=== PATIENT | female | born 1975 ===

== ENCOUNTER 2018-02-05 23:41 | Emergency (ER) | payer SELFPAY ==
[2018-02-05 23:56] VITALS: BP 123/73; PULSE 73; RESP 18; TEMP 98.3; O2SAT 98
[2018-02-06] MEDS ORDERED: Tmp-Smz 800 mg-160 mg DS Tab PO STA (00:35)
--- NOTE | 2018-02-06 00:48 | C.PDOC ---
History Of Present Illness 42 y/o female presents to ED for complaints of developing an itchy, painful and swollen rash on left upper arm that began 2 days ago after she was bit by a bug. Denies SOB, fever, chills, or any other physical complaints. Time Seen by Provider: 02/06/18 00:01 Chief Complaint (Nursing): Abnormal Skin Integrity History Per: Patient History/Exam Limitations: no limitations Onset/Duration Of Symptoms: Hrs Current Symptoms Are (Timing): Still Present Location Of Injury: Left: Arm Quality Of Symptoms: Painful, Itching, Swollen. denies: Draining Recent travel outside of the [place]: No Past Medical History Reviewed: Historical Data, Nursing Documentation, Vital Signs Vital Signs: Last Vital Signs Temp 98.3 F 02/05/18 23:53 Pulse 73 02/05/18 23:53 Resp 18 02/05/18 23:53 BP 123/73 02/05/18 23:53 Pulse Ox 98 02/06/18 01:01 - Medical History PMH: No Chronic Diseases Surgical History: No Surg Hx Family History: States: Unknown Family Hx - Social History Hx Alcohol Use: No Hx Substance Use: No - Immunization History Hx Tetanus Toxoid Vaccination: No Hx Influenza Vaccination: No Hx Pneumococcal Vaccination: No Review Of Systems Constitutional: Negative for: Fever, Chills Gastrointestinal: Negative for: Nausea, Vomiting, Abdominal Pain, Diarrhea Skin: Positive for: Rash (Left upper arm ) Neurological: Negative for: Weakness, Numbness Physical Exam - Physical Exam Appears: Well, Non-toxic, No Acute Distress Skin: Normal Color, Warm, Dry, Rash (5-6cm left upper arm area; erythema; swelling; mild tenderness to posterior left upper arm from insect bite) Head: Atraumatic, Normacephalic Eye(s): bilateral: Normal Inspection, PERRL, EOMI Oral Mucosa: Moist Throat: Normal, No Erythema, No Exudate, No Drooling, No Mass Neck: Supple Chest: Symmetrical, No Tenderness Cardiovascular: Rhythm Regular, No Murmur Respiratory: Normal Breath Sounds, No Decreased Breath Sounds, No Rales, No Rhonchi, No Wheezing Gastrointestinal/Abdominal: Soft, No Tenderness, No Distention Extremity: Normal ROM, No Deformity Extremity: Bilateral: Atraumatic, Normal ROM Pulses: Left Radial: Normal, Right Radial: Normal Neurological/Psych: Oriented x3, Normal Speech Gait: Steady ED Course And Treatment O2 Sat by Pulse Oximetry: 98 (RA) Pulse Ox Interpretation: Normal Medical Decision Making Medical Decision Making: Administered bendryl, bactrim, prednisone. Disposition - Disposition Referrals: [facility] [Outside] Disposition: HOME/ ROUTINE Disposition Time: 00:47 Condition: GOOD Additional Instructions: Follow up with the medical doctor/clinic within 1-2 days. Return if worsened. Prescriptions: DiphenhydrAMINE [Benadryl] 25 mg PO QID #28 cap Sulfamethoxazole/Trimethoprim [Bactrim DS 800 mg-160 mg] 1 tab PO BID #14 tab Instructions: Insect Bites and Stings (DC), Cellulitis (Skin Infection), Adult (DC) Forms: [employer] (Belarusian) Print Language: TAMAZIGHT - Clinical Impression Clinical Impression: Insect bite - PA / RECYCLING PROGRAM MANAGER / Resident Statement MD/DO has reviewed & agrees with the documentation as recorded. - Scribe Statement The provider has reviewed the documentation as recorded by the [facility] Hook All medical record entries made by the [facility] were at my direction and personally dictated by me. I have reviewed the chart and agree that the record accurately reflects my personal performance of the history, physical exam, medical decision making, and the department course for this patient. I have also personally directed, reviewed, and agree with the discharge instructions and disposition.
[2018-02-06] MEDS ORDERED: Tmp-Smz 800 mg-160 mg DS Tab ONE (00:53)
== END 2018-02-06 01:03 | disposition home or self-care (01) ==
LOC: C.ER 23:41
DX: S40.862A Insect bite (nonvenomous) of left upper arm, initial encounter (principal); W57.XXXA Bitten or stung by nonvenomous insect and other nonvenomous arthropods, initial encounter